=== PATIENT | female | born 1965 | race Caucasian/White ===

== ENCOUNTER 2024-05-05 21:06 | Emergency (ER) | payer BC, SELFPAY ==
[2024-05-05 21:09] VITALS: BP 166/90
[2024-05-05 21:56] LABS: Urine Albumin 1+ (Neg - Trace); Urine Bilirubin Negative (Negative); Urine Character Clear (Clear); Urine Color Yellow; Urine Glucose Negative (Negative); Urine Ketone Negative (Negative); Urine Leukocyte 1+ (Negative); Urine Nitrite Negative (Negative); Urine Occult Blood 1+ (Negative); Urine Specific Gravity 1.015 (<1.030); Urine Urobilinogen Negative (Neg - 1+)
[2024-05-05 21:58] LABS: Amphetamines Negative (Negative); Barbiturates Negative (Negative); Benzodiazepines Negative (Negative); Buprenorphine Negative (Negative); Cocaine Negative (Negative); Marijuana Negative (Negative); Methadone Negative (Negative); Methamphetamines Negative (Negative); Opiates Negative (Negative); Phencyclidine Negative (Negative); Tricyclic Antidepressants Negative (Negative)
--- NOTE | 2024-05-05 22:01 | ED.GENMED ---
History of Present Illness
General
Chief Complaint: Crisis Evaluation
Source: patient and spouse
Exam Limitations: none
Time Seen by Provider: 05/05/24 21:55
Nursing documentation reviewed up to this point in time: agreed with
History of Present Illness
History of Present Illness:
59-year-old female long history of anxiety presents with anxiety and suicidal thoughts weaned off Lexapro over the past 2 to 3 weeks none for a few days symptoms got worse crying not sleeping well, drinks alcohol socially not excess, having trouble
functioning going to work, similar episode of panic a few years ago treated with intensive outpatient therapy multiple meds, Lexapro was the only one that worked though she does not like the way it makes her feel thus tried to get off of it never
gets alcohol withdrawal she is amenable to going to inpatient
Past History
Past History
ED Past Medical History: Psychiatric
ED Past Surgical History: Gynecological
Social History
Tobacco: Non-smoker
Alcohol: Daily
Drug: None
Personal:
Living: with family
Employment: Employed
Review of Systems
Review of Systems
All Other Systems: Not applicable
Constitutional: Reports sleep disturbance
Neurological: Reports dizzy
Psychiatric: Reports depression, anxiety and suicidal
Phy Exam
Physical Exam
Physical Exam:
Physical Exam
General: no apparent distress, not acutely ill
Neck: No jaundice
Heart: s1/s2 regular rate and rhythm, no murmur. equal radial pulses.
Lungs: no acute respiratory distress. clear bilaterally
Neuro: alert and oriented. no focal neurological deficits
Skin: no rash
Psychiatric: Anxious, admits to some suicidal thoughts
Extremities: no edema.
Course
Orders/Labs/Results
Orders:
Orders
05/05/24 21:13
1:1 Observation - Suicide/ Violent Behavior As Directed
Crisis Consult Urgent
Reason for Consult: si
05/05/24 21:39
Urinalysis Reflex To Culture Urgent
Date Specimen was Collected: 05/05/24
Time Specimen was Collected: :34
Urine Drug Abuse Screen Urgent
Date Specimen was Collected: 05/05/24
Time Specimen was Collected: 21:34
Urine Microscopic Reflex Cult Urgent
Urine Culture Urgent
JOSE Source: U
Specimen Description:
Date Specimen was Collected: 05/05/24
Time Specimen was Collected: :34
05/05/24 22:01
Lorazepam [Ativan] 1 mg PO NOW STA
05/05/24 22:06
Acetaminophen Urgent
Alcohol Urgent
Complete Blood Count/With Diff Urgent
Comprehensive Metabolic Panel Urgent
Salicylate Urgent
05/05/24 22:11
Acetaminophen [Tylenol] 650 mg PO NOW STA
Abnormal Lab Results
05/05/24 05/05/24
21:39 22:06
RBC 4.15 L 10^6/uL
(4.20-5.40)
Hct 36.7 L %
(37.0-47.0)
Neutrophils % 40.0 L %
(42.2-75.2)
BUN 25 H mg/dl
(7-17)
Ur Occult Blood Reflex 1+ A
(Negative)
Leukocyte Esterase Rfl 1+ A
(Negative)
Urine Bacteria (Reflex) Few A
(Negative)
Urine Albumin (Reflex) 1+ A
(Neg - Trace)
Salicylates < 1.0 L mg/dl
(2.0-20.0)
Acetaminophen < 10 L ug/ml
(10-30)
05/05/24 22:06
05/05/24 22:06
Vital Signs
Initial and Last Documented VS:
Initial Vital Signs
Temp Pulse Resp BP Pulse Ox
97.5 F 82 18 166/90 99
05/05/24 21:09 05/05/24 21:09 05/05/24 21:09 05/05/24 21:09 05/05/24 21:09
Last Documented Vital Signs
Temp Pulse Resp BP Pulse Ox
97.5 F 82 18 166/90 99
05/05/24 21:09 05/05/24 21:09 05/05/24 21:09 05/05/24 21:09 05/05/24 21:09
MDM/Problems Addressed
Differential Diagnosis Includes:
Depression anxiety medication effect suicidal thoughts
MDM/Problems Addressed:
Suicidal thoughts SSRI withdrawal
Chronic conditions affecting care: Psychiatric illness
Acute Exacerbation and/or Progression of Chronic Illness: Psychiatric illness
*Critical Care Note
Total Time (30-74mins, 75-104mins- exclusive of procedures): Not Applicable
Update Note
Update Note:
Update labs noted patient medically clear for psychiatric evaluation placement
ED Attending Note
-
Portions of this chart may have been created with voice recognition software.� Occasional wrong word or��sound alike� substitutions may have occurred due to the inherent limitations of voice recognition software.
Discharge Plan
Departure
Patient Disposition: Psych Facility
Date of Disposition: 05/05/24
Time of Disposition: 23:03
Condition: Good
Covid-19: Not Applicable
Discharge Problem:
Suicidal ideation
Prescriptions:
No Action
valacyclovir [Valtrex] 1,000 MG tablet
500 mg PO DAILY
pramipexole [Mirapex ER] 3.75 MG tablet extended release 24 hr
3.75 mg PO DAILY
Referrals:
UNKNOWN,NO INTERVIEW [Family Provider] -
Interventions
Interventions:
*Risk Screen - Suicide Last Done: 05/05/24 21:09
*General Assessment Last Done: 05/05/24 21:09
*ED COVID-19 Vaccine History Last Done: 05/05/24 21:09
ED-Psychological Assessment Last Done: 05/05/24 21:43
Discharge Date and Time
Print Language: TAMAZIGHT
[2024-05-05 22:12] LABS: % Basophils 0.4 % (0-2); % Eosinophils 1.9 % (0-6); % Immature Granulocytes 0.2 % (0-0.5); % Lymphocytes 49.3 % (20.5-51.1); % Monocytes 8.2 % (1.7-9.3); Absolute Eosinophils 0.1 10^3/uL (0-0.7); Absolute Lymphocytes 2.6 10^3/uL (1.2-3.4); Absolute Monocytes 0.4 10^3/uL (0.1-0.6); Absolute Neutrophils 2.1 10^3/uL (1.4-6.5); Hematocrit 36.7 % (37.0-47.0); Hemoglobin 12.6 g/dL (12.0-16.0); Mean Corp Hgb Conc. 34.3 g/dL (33.0-37.0); Mean Corpuscular Hgb 30.4 pg (27.0-31.0); Mean Corpuscular Volume 88.4 fL (81.0-99.0); Mean Platelet Volume 10.4 fL (7.4-10.4); Nucleated Red Blood Cells % 0 %; Platelet Count 232 10^3/uL (130-400); Red Blood Cell Count 4.15 10^6/uL (4.20-5.40); Red Cell Dist. Width 12.7 % (11.5-14.5); White Blood Cell Count 5.3 10^3/uL (4.8-10.8)
[2024-05-05] MEDS: TYLENOL 650 MG PO (22:13)
[2024-05-05] MEDS: ATIVAN 1 MG PO (22:14)
[2024-05-05 22:17] LABS: Urine Amorphous Seen; Urine Bacteria Few (Negative); Urine Red Blood Cell 0-2 /HPF (0-2); Urine Squamous Cell >30 /LPF (Few)
[2024-05-05 22:37] LABS: ALT (SGPT) 23 U/L (0-35); AST (SGOT) 21 U/L (14-36); Acetaminophen < 10 ug/ml (10-30); Albumin 4.2 g/dl (3.5-5.0); Alkaline Phosphatase 62 U/L (38-126); Blood Urea Nitrogen 25 mg/dl (7-17); Calcium 9.6 mg/dl (8.4-10.2); Carbon Dioxide 26 mmol/L (22-30); Chloride 105 mmol/L (98-107); Glucose 99 mg/dl (70-99); Potassium 3.9 mmol/L (3.5-5.1); Salicylate < 1.0 mg/dl (2.0-20.0); Sodium 137 mmol/L (135-145); Total Bilirubin 0.4 mg/dl (0.2-1.3); Total Protein 6.6 g/dl (6.3-8.2); eGFR > 60.00
[2024-05-05 22:39] LABS: Alcohol None Detected
== END 2024-05-06 09:09 ==
LOC: EMR 21:06
PROVIDERS: EMERGENCY PHYSICIAN Emergency Medicine
DX: R45.851 Suicidal ideations (principal); F41.9 Anxiety disorder, unspecified
CPT/HCPCS: 99283; 80053; 80143; 80179; 80306; 81003; 81015; 82077; 85025; 87086

== ENCOUNTER 2024-10-18 11:31 | Emergency (ER) | payer BC, SELFPAY ==
[2024-10-18 11:35] VITALS: BP 181/94
--- NOTE | 2024-10-18 12:19 | ED.GENMED ---
History of Present Illness
General
Chief Complaint: Skin Problem
Source: patient
Exam Limitations: none
Time Seen by Provider: 10/18/24 12:10
History of Present Illness
History of Present Illness:
59yoF with a history of anxiety and depression presenting for evaluation of a rash x 1 week. Patient was initiated on lamotrigine about a month ago by her psychiatrist for mood stabilization. She was started on 100 mg and was told to increase it
every week by 100 mg. She was up to 300 mg last week and started to notice a red rash on her chest, neck, and arms. She started to taper down her lamotrigine and took 100 mg total yesterday. The rash has become more localized since she started
tapering the medication and is now only present on her neck. The rash is itchy and painful which she describes as burning. She has tried multiple creams including hydrocortisone, peppermint oil, and aloe vera without any relief. She was seen by
her PCP yesterday and was initiated on a prednisone taper. She saw her therapist today who encouraged her to come to the ED for evaluation. She denies any oral or genital involvement. No fevers or chills. Of note, patient has taken lamotrigine
in the past but was only taking 50mg daily.
Past History
Past History
ED Past Medical History: Psychiatric
ED Past Surgical History: Gynecological
Social History
Tobacco: Non-smoker
Alcohol: Daily
Drug: None
Personal:
Living: with family
Employment: Employed
Phy Exam
General Physical Exam
General Presentation: well appearing and no apparent distress
General Skin: warm and dry
General Habitus: normal
General Mental: alert
ENT Exam
ENT Exam: pharynx normal, normocephalic and other (No lip or oral lesions noted.)
Pulmonary Exam
Pulmonary Exam: no respiratory distress
Neurological Exam
Neurological Exam: alert
[place] Coma Scale
Eye Opening: Spontaneous
Verbal Response: Oriented
Motor Response: Obeys Commands
GCS Total Score: 15
Skin Exam
Skin Exam: other (Erythematous rash noted to anterior neck with irritated and dry skin. No skin sloughing. No other rash appreciated.)
Psychiatric Exam
Psychiatric Exam: normal mood/affect
Course
Orders/Labs/Results
Orders:
Orders
10/18/24 12:24
Complete Blood Count/With Diff Urgent
Comprehensive Metabolic Panel Urgent
Abnormal Lab Results
10/18/24
12:24
MPV 10.6 H fL
(7.4-10.4)
Neutrophils % 76.8 H %
(42.2-75.2)
Lymphocytes % 16.8 L %
(20.5-51.1)
Glucose 103 H mg/dl
(70-99)
10/18/24 12:24
10/18/24 12:24
Vital Signs
Initial and Last Documented VS:
Initial Vital Signs
Temp Pulse Resp BP Pulse Ox
97.4 F 91 15 181/94 99
10/18/24 11:35 10/18/24 11:35 10/18/24 11:35 10/18/24 11:35 10/18/24 11:35
Last Documented Vital Signs
Temp Pulse Resp BP Pulse Ox
97.4 F 88 16 179/84 98
10/18/24 11:35 10/18/24 13:20 10/18/24 13:20 10/18/24 13:20 10/18/24 13:20
MDM/Problems Addressed
Differential Diagnosis Includes:
59yoF here with a rash x 1 week. Started after being on Lamictal for about 2 weeks. Patient started to taper Lamictal and rash has improved but is still itchy and painful. Started on prednisone yesterday by PCP. She denies systemic symptoms. VSS.
Skin on the anterior neck appears red, irritated, and dry. There is no skin sloughing or evidence of mucosal involvement. Differential diagnosis includes: contact dermatitis, eczema, DRESS syndrome, no clinical evidence of SJS
Initial ED plan: Check CBC and CMP.
*Pulse Oximetry
SaO2: 99
Oxygen Mode of Delivery: Room air
Patient hypoxic: no (99%)
*Critical Care Note
Total Time (30-74mins, 75-104mins- exclusive of procedures): Not Applicable
Update Note
Update Note:
Labs unremarkable including normal white count, eosinophils, renal function and LFTs. Again, very low suspicion of SJS based on clinical exam. She was advised to stop lamotrigine and discuss with her psychiatrist. She will continue prednisone taper
that was initiated yesterday. ED return precautions reviewed. Patient in agreement with plan and was discharged in stable condition.
ED Attending Note
-
Portions of this chart may have been created with voice recognition software.� Occasional wrong word or��sound alike� substitutions may have occurred due to the inherent limitations of voice recognition software.
Discharge Plan
Departure
Patient Disposition: Home (Routine Discharge)
Date of Disposition: 10/18/24
Time of Disposition: 13:07
Patient with high blood pressure during this ER visit?: Yes
Discharge Problem:
Rash and nonspecific skin eruption
Instructions: Skin Rash (DC)
Prescriptions:
No Action
valacyclovir [Valtrex] 1,000 MG tablet
500 mg PO DAILY
pramipexole [Mirapex ER] 3.75 MG tablet extended release 24 hr
3.75 mg PO DAILY
Referrals:
Ruddy Monaco DO [Family Provider, Family Practice]
Samy Vallejo MD [Active, Dermatology]
Activity Restrictions/Additional Instructions:
Stop taking lamotrigine. Continue prednisone. You may apply Eucerin cream to affected area.
Please follow-up with your psychiatrist as well as dermatology if symptoms persist. Return to the ER with any worsening symptoms including fevers or rash involving the lips or mouth.
Interventions
Interventions:
*Risk Screen - Suicide Last Done: 10/18/24 11:35
*General Assessment Last Done: 10/18/24 11:35
*Neglect/Abuse Screening Last Done: 10/18/24 11:35
*ED- Fall Risk Assessment Last Done: 10/18/24 11:51
*ED COVID-19 Vaccine History Last Done: 10/18/24 11:35
*Nursing Disposition Last Done: 10/18/24 13:20
ED-Skin Assessment Last Done: 10/18/24 13:20
Discharge Date and Time
Discharge Date/Time: 10/18/24 13:21
Print Language: POLISH
[2024-10-18 12:29] LABS: Hematocrit 40.1 % (37.0-47.0); Hemoglobin 13.4 g/dL (12.0-16.0); Mean Corp Hgb Conc. 33.4 g/dL (33.0-37.0); Mean Corpuscular Volume 89.5 fL (81.0-99.0); Nucleated Red Blood Cells % 0 %; Platelet Count 283 10^3/uL (130-400); Red Cell Dist. Width 13.4 % (11.5-14.5)
[2024-10-18 12:52] LABS: ALT (SGPT) 27 U/L (0-35); AST (SGOT) 22 U/L (14-36); Albumin 5.0 g/dl (3.5-5.0); Alkaline Phosphatase 70 U/L (38-126); Blood Urea Nitrogen 17 mg/dl (7-17); Calcium 10.1 mg/dl (8.4-10.2); Carbon Dioxide 26 mmol/L (22-30); Chloride 107 mmol/L (98-107); Glucose 103 mg/dl (70-99); Potassium 4.3 mmol/L (3.5-5.1); Sodium 141 mmol/L (135-145); Total Protein 7.9 g/dl (6.3-8.2); eGFR > 60.00
[2024-10-18 13:20] VITALS: BP 179/84
== END 2024-10-18 13:21 | disposition home or self-care (01) ==
LOC: EMR 11:31
PROVIDERS: Physician Assistant; EMERGENCY PHYSICIAN Emergency Medicine; FAMILY PHYSICIAN Family Medicine
DX: R21 Rash and other nonspecific skin eruption (principal); F41.8 Other specified anxiety disorders
CPT/HCPCS: 99283; 80053; 85025